=== PATIENT | male | born 1950 | race African-American/Black ===

== ENCOUNTER 2024-04-05 11:10 | Inpatient (IN) | payer OTHER ==
[~2024-04-05] VITALS: Ht 188 cm; Wt 90.3 kg
[2024-04-05 11:13] VITALS: O2SAT 97
[2024-04-05] MEDS ORDERED: VANCOMYCIN 1G PREMIX 200 ML IV ONE (11:30)
[2024-04-05] MEDS: SODIUM CHLORIDE 0.9% (SEPSIS BOLUS) IV ONE (11:58)
[2024-04-05] MEDS: PIPERACILLIN/TAZO 3.375G/50ML 50 ML IV ONE (12:07)
[2024-04-05 12:11] LABS: BASOPHILS % 0.4 % (0.0-2.0); DIFFERENTIAL COMMENT 0; EOSINOPHILS % 1.1 % (0.0-5.0); HEMATOCRIT. 39.2 % (42.0-52.0); HEMOGLOBIN. 12.6 g/dL (14.0-18.0); LYMPHOCYTES % 28.2 % (20.0-50.0); MEAN CORPUSCULAR HEMOGLOBIN 23.7 pg (28.0-32.0); MEAN CORPUSCULAR HGB CONC 32.2 g/dL (31.0-37.0); MEAN CORPUSCULAR VOLUME 73.5 fL (80.0-94.0); MEAN PLATELET VOLUME 8.9 fl (7.4-10.4); MONOCYTES % 9.8 % (2.0-8.0); NEUTROPHILS % 60.5 % (40.0-76.0); PLATELET 238 x1000/uL (130-400); RED BLOOD CELL COUNT 5.34 mill/uL (4.7-6.1); RED CELL DISTRIBUTION WIDTH 17.2 % (11.6-14.6); WHITE BLOOD COUNT 6.7 x1000/uL (4.5-11.0)
[2024-04-05 12:16] LABS: CHLORIDE 108 mEq/L (98-107); POTASSIUM 3.7 mEq/L (3.5-5.1); SODIUM 140 mEq/L (136-145)
[2024-04-05 12:17] LABS: CALCIUM 8.5 mg/dL (8.7-10.4); CARBON DIOXIDE 25 mEq/L (21-32)
[2024-04-05 12:20] LABS: PROTHROMBIN TIME 11.4 sec (9.6-11.0)
[2024-04-05 12:22] LABS: GLUCOSE 142 mg/dL (70-105); UREA NITROGEN BLOOD 8 mg/dL (9-23)
[2024-04-05 12:23] LABS: LACTIC ACID 2.1 mmol/L (0.4-2.0); TROPONIN I HIGH SENSITIVITY 5 ng/L (3.0-53)
[2024-04-05 12:24] LABS: ALANINE AMINOTRANSFERASE < 7 IU/L (10-49); ALBUMIN 3.7 g/dL (3.2-4.8); ASPARTATE AMINOTRANSFERASE 11 IU/L (<34); BILIRUBIN DIRECT 0.1 mg/dL (<=3.0); BILIRUBIN TOTAL 0.4 mg/dL (0.1-1.0)
[2024-04-05] MEDS: VANCOMYCIN 1GM PMX (XELLIA) 200 ML IV NR ×2 (13:07→14:45)
[2024-04-05] MEDS ORDERED: MAGNESIUM/ALUMINUM HYDROXIDE/SIMETHICONE 30ML UDC PO PRN (14:15)
[2024-04-05] MEDS: LACTATED RINGERS 1,000 ML IV SCH (14:15)
[2024-04-05] MEDS ORDERED: KETOROLAC 15MG/ML VIAL IV PRN (14:15)
[2024-04-05] MEDS ORDERED: NITROGLYCERIN 0.4MG TABLET SL SL PRN (14:15)
[2024-04-05] MEDS ORDERED: ACETAMINOPHEN 325MG TABLET PO PRN ×2 (14:15)
[2024-04-05] MEDS ORDERED: ZOLPIDEM TARTRATE 5MG TABLET PO PRN (14:15)
[2024-04-05] MEDS ORDERED: DOCUSATE SODIUM 100MG CAPSULE PO PRN (14:15)
[2024-04-05] MEDS ORDERED: MEROPENEM 1,000 MG in SODIUM CHLORIDE 0.9% 100 ML IV SCH (14:15)
[2024-04-05] MEDS ORDERED: ONDANSETRON HCL 4MG/2ML INJ IV PRN (14:15)
[2024-04-05] MEDS ORDERED: GUAIFENESIN 200MG/10ML SUGAR FREE UDC PO PRN (14:15)
[2024-04-05] MEDS ORDERED: CLONIDINE 0.1MG TABLET PO PRN (14:15)
[2024-04-05] MEDS ORDERED: IPRATROPIUM/ALBUTEROL 0.5-3(2.5)MG/3ML NEB NEB PRN (14:15)
[2024-04-05] MEDS: ENOXAPARIN 40MG/0.4ML SYR SUBCUT SCH (15:00)
[2024-04-05] MEDS: MEROPENEM 1G/100ML IV SCH (15:00)
[2024-04-05 15:23] LABS: IRON 47 ug/dL (65-175)
[2024-04-05 15:24] LABS: TRIGLYCERIDE 81 mg/dL (0-150)
[2024-04-05 15:25] LABS: LDL CHOLESTEROL 84 mg/dL (5-100)
[2024-04-05 15:26] LABS: CHOLESTEROL 145 mg/dL (<200); HDL CHOLESTEROL 46 mg/dL (>55); TOTAL IRON BINDING CAPACITY 231 ug/dl (250-425)
[2024-04-05 15:29] LABS: FOLIC ACID (FOLATE) SERUM 12.37 ng/mL (>5.38); T4 FREE 0.98 ng/dL (0.89-1.76); THYROID STIMULATING HORMONE 3.87 uIU/mL (0.55-4.78)
[2024-04-05 15:30] LABS: VITAMIN B12 SERUM 376 pg/mL (211-911)
[2024-04-05 20:00] VITALS: BP 123/81; PULSE 101; RESP 17; TEMP 36.44736; O2SAT 100
[2024-04-05] MEDS: FAMOTIDINE 20MG TABLET PO SCH (21:28)
[2024-04-05] MEDS: ASCORBIC ACID 500 MG TABLET PO SCH (21:29)
[2024-04-05] MEDS: DILTIAZEM HCL 60MG TABLET PO SCH (21:31)
[2024-04-05] MEDS: ENOXAPARIN 60MG/0.6ML SYR SUBCUT NR (21:36)
[2024-04-06] VITALS (7 sets, daily range): BP systolic 101–129; BP diastolic 65–94; PULSE 74–101; RESP 18–19; TEMP 36.44736–36.9474; O2SAT 97–100
[2024-04-06 00:54] LABS: CREATINE KINASE MB FRACTION 0.6 ng/mL (0.5-3.6)
[2024-04-06] MEDS: VANCOMYCIN 1GM PMX (XELLIA) 200 ML IV SCH (04:00)
[2024-04-06 07:17] LABS: CHLORIDE 109 mEq/L (98-107); POTASSIUM 3.9 mEq/L (3.5-5.1); SODIUM 141 mEq/L (136-145)
[2024-04-06 07:19] LABS: CREATINE KINASE MB FRACTION < 0.5 ng/mL (0.5-3.6); TROPONIN I HIGH SENSITIVITY 9 ng/L (3.0-53)
[2024-04-06 07:21] LABS: CARBON DIOXIDE 25 mEq/L (21-32)
[2024-04-06 07:22] LABS: CALCIUM 8.9 mg/dL (8.7-10.4)
[2024-04-06 07:26] LABS: CREATININE 0.9 mg/dL (0.6-1.3); GLUCOSE 87 mg/dL (70-105)
[2024-04-06 07:27] LABS: UREA NITROGEN BLOOD 8 mg/dL (9-23)
[2024-04-06 07:28] LABS: ALANINE AMINOTRANSFERASE < 7 IU/L (10-49); ALBUMIN 3.6 g/dL (3.2-4.8); ASPARTATE AMINOTRANSFERASE 11 IU/L (<34); CREATINE KINASE 67 IU/L (46-171)
[2024-04-06 07:29] LABS: BILIRUBIN TOTAL 0.7 mg/dL (0.1-1.0); PROTEIN TOTAL 6.9 g/dL (6.0-8.3)
[2024-04-06 07:46] LABS: BASOPHILS % 0.7 % (0.0-2.0); DIFFERENTIAL COMMENT 0; EOSINOPHILS % 0.5 % (0.0-5.0); HEMATOCRIT. 35.4 % (42.0-52.0); HEMOGLOBIN. 11.5 g/dL (14.0-18.0); LYMPHOCYTES % 25.3 % (20.0-50.0); MEAN CORPUSCULAR HEMOGLOBIN 23.8 pg (28.0-32.0); MEAN CORPUSCULAR HGB CONC 32.5 g/dL (31.0-37.0); MEAN CORPUSCULAR VOLUME 73.1 fL (80.0-94.0); MEAN PLATELET VOLUME 9.3 fl (7.4-10.4); MONOCYTES % 12.7 % (2.0-8.0); NEUTROPHILS % 60.8 % (40.0-76.0); PLATELET 225 x1000/uL (130-400); RED BLOOD CELL COUNT 4.84 mill/uL (4.7-6.1); RED CELL DISTRIBUTION WIDTH 16.9 % (11.6-14.6); WHITE BLOOD COUNT 8.1 x1000/uL (4.5-11.0)
[2024-04-06] MEDS: ASPIRIN 81MG EC TABLET PO SCH (09:05)
[2024-04-06] MEDS: ENOXAPARIN 100MG/ML SYR SUBCUT SCH (09:05)
[2024-04-06] MEDS: ZINC SULFATE 220 MG ( 50 ) CAPSULE PO SCH (09:06)
[2024-04-06] MEDS: METOPROLOL TARTRATE 25MG TABLET PO SCH (14:45)
[2024-04-06] MEDS: DIGOXIN 500MCG/2ML AMP IV NR (15:24)
[2024-04-07] VITALS: BP 107/70; PULSE 90; RESP 20; TEMP 36.44736; O2SAT 99
[2024-04-07 04:00] VITALS: BP 124/60; PULSE 68; RESP 19; TEMP 36.72516; O2SAT 99
[2024-04-07 08:00] VITALS: BP 150/110; PULSE 78; RESP 18; TEMP 36.28068; O2SAT 100
[2024-04-07 12:00] VITALS: BP 135/86; PULSE 76; RESP 18; O2SAT 100
[2024-04-07 16:00] VITALS: BP 130/73; PULSE 81; RESP 18; TEMP 36.55848; O2SAT 100
[2024-04-07 20:00] VITALS: BP 141/92; PULSE 87; RESP 20; TEMP 36.50292; O2SAT 96
[2024-04-08] VITALS: BP 138/90; PULSE 83; RESP 19; TEMP 36.3918; O2SAT 97
[2024-04-08 04:00] VITALS: BP 108/73; PULSE 90; RESP 20; TEMP 36.50292; O2SAT 97
[2024-04-08 08:00] VITALS: BP 124/57; PULSE 83; RESP 18; TEMP 36.89184; O2SAT 97
[2024-04-08 09:20] VITALS: PULSE 83
[2024-04-08] MEDS ORDERED: VANCOMYCIN 1.25GM PMX (XELLIA) 250 ML IV SCH (16:00)
== END 2024-04-08 14:31 | disposition left against medical advice (07) | DRG 871 ==
LOC: ER 11:10 → 5WST 13:21 → EDBEDREQTM 13:38 → EDBEDREQ 13:38 → 7WST 19:52
PROVIDERS: ADMIT Internal Medicine; ATTEND Internal Medicine
DX: A41.9 Sepsis, unspecified organism (principal); R65.21 Severe sepsis with septic shock; E87.20 Acidosis, unspecified; I48.91 Unspecified atrial fibrillation; D63.8 Anemia in other chronic diseases classified elsewhere; E83.51 Hypocalcemia
CPT/HCPCS: 36415; 71045; 80048; 80053; 80061; 80076; 80202; 82550; 82553; 82607; 82746; 83036; 83540; 83550; 83605; 83735; 84100; 84145; 84439; 84443; 84484; 85025; 93005; 93306; 93970; 97165; 99291; J1160; J1650; J2185; J2543; J3370; J7030

== ENCOUNTER 2025-01-15 19:12 | Emergency (ER) | payer MEDICARE, OTHER ==
[~2025-01-15] VITALS: Ht 185.4 cm; Wt 68.0 kg
[~2025-01-15 19:12] MED LIST: APIX5TAB PO; FERR325T6 MT; SULF1TAB48 PO; THIA100T72 PO; TOPUD PO
[2025-01-15 19:13] VITALS: BP 128/80; PULSE 77; RESP 14; TEMP 36.8; O2SAT 96
== END 2025-01-15 19:40 | disposition home or self-care (01) ==
LOC: ER 19:12
DX: M25.551 Pain in right hip (principal); R53.1 Weakness; Z79.899 Other long term (current) drug therapy; W19.XXXA Unspecified fall, initial encounter; Y93.89 Activity, other specified; Y92.89 Other specified places as the place of occurrence of the external cause; Y99.8 Other external cause status
CPT/HCPCS: 99283

== ENCOUNTER 2025-01-19 10:08 | Inpatient (IN) | payer OTHER ==
[~2025-01-19] VITALS: Ht 172.7 cm; Wt 73.0 kg
[2025-01-19 10:58] LABS: HEMATOCRIT. 29.0 % (42.0-52.0); HEMOGLOBIN. 9.4 g/dL (14.0-18.0); MEAN PLATELET VOLUME 8.6 fl (7.4-10.4); PLATELET 277 x1000/uL (130-400); RED BLOOD CELL COUNT 4.42 mill/uL (4.7-6.1); RED CELL DISTRIBUTION WIDTH 29.7 % (11.6-14.6)
[2025-01-19 11:15] LABS: TROPONIN I HIGH SENSITIVITY 6 ng/L (3.0-53)
[2025-01-19] MEDS: DILTIAZEM HCL 5MG/ML 5ML VIAL IV ONE (11:16)
[2025-01-19] MEDS: LACTATED RINGERS 1,000 ML IV SCH (11:16)
[2025-01-19 11:17] LABS: CREATININE 0.9 mg/dL (0.6-1.3); UREA NITROGEN BLOOD 15 mg/dL (9-23)
[2025-01-19 11:19] LABS: ASPARTATE AMINOTRANSFERASE 29 IU/L (<34); BILIRUBIN DIRECT 0.2 mg/dL (<=3.0); BILIRUBIN TOTAL 0.6 mg/dL (0.1-1.0); PROTEIN TOTAL 7.3 g/dL (6.0-8.3)
[2025-01-19] MEDS: DILTIAZEM HCL 60MG TABLET PO ONE (11:20)
[2025-01-19 11:50] LABS: BAND% 3.0 % (1.0-6.0); LYMPHOCYTES % MANUAL 20.0 % (20.0-50.0); MONOCYTES % MANUAL 21.0 % (2.0-8.0); NEUTROPHILS % MANUAL 56.0 % (45.0-75.0); PLATELET ESTIMATE NORMAL
[2025-01-19 12:00] VITALS: BP 102/64; PULSE 78; RESP 18; TEMP 36.9; O2SAT 98
[2025-01-19 13:10] LABS: TROPONIN I HIGH SENSITIVITY 5 ng/L (3.0-53)
[2025-01-19 15:00] VITALS: BP 102/64; PULSE 78; RESP 18; TEMP 37.0852
[2025-01-19 16:00] VITALS: BP 106/56; PULSE 70; RESP 15; TEMP 37.2; O2SAT 90
[2025-01-19] MEDS ORDERED: CLONIDINE 0.1MG TABLET PO PRN (17:30)
[2025-01-19] MEDS ORDERED: IPRATROPIUM/ALBUTEROL 0.5-3(2.5)MG/3ML NEB HHN PRN (17:30)
[2025-01-19] MEDS ORDERED: ACETAMINOPHEN 325MG TABLET PO PRN (17:30)
[2025-01-19] MEDS ORDERED: ONDANSETRON HCL 4MG/2ML INJ IV PRN (17:30)
[2025-01-19] MEDS ORDERED: GUAIFENESIN 200MG/10ML SUGAR FREE UDC PO PRN (17:30)
[2025-01-19] MEDS ORDERED: DOCUSATE SODIUM 100MG CAPSULE PO PRN (17:30)
[2025-01-19] MEDS: IOHEXOL-350 100 ML BOTTLE ONE (17:44)
[2025-01-19] MEDS: FERROUS SULFATE 325MG TABLET PO SCH (18:17)
[2025-01-19] MEDS: THIAMINE HCL 100MG TABLET PO SCH (18:17)
[2025-01-19] MEDS: APIXABAN 5 MG TABLET PO SCH (18:20)
[2025-01-19] MEDS: MVI, ADULT NO.1 10 ML, FOLIC ACID 1 MG, THIAMINE HCL 100 MG in SODIUM CHLORIDE 0.9% 1,0... IV ONE (19:30)
[2025-01-19] MEDS: PANTOPRAZOLE SODIUM 40 MG/VIAL IV SCH (19:45)
[2025-01-19 20:00] VITALS: BP 97/55; PULSE 62; RESP 18; TEMP 36.6; O2SAT 99
[2025-01-19] MEDS: DILTIAZEM HCL 30MG TABLET PO SCH (20:58)
[2025-01-19] MEDS: SODIUM CHLORIDE 0.45% 1,000 ML IV SCH (21:50)
[2025-01-19] MEDS ORDERED: DILTIAZEM HCL 30MG TABLET PO SCH (22:00)
[2025-01-19 22:20] LABS: TRIGLYCERIDE 80 mg/dL (0-150)
[2025-01-19 22:21] LABS: LDL CHOLESTEROL 95 mg/dL (5-100)
[2025-01-19 22:22] LABS: ASPARTATE AMINOTRANSFERASE 26 IU/L (<34); BILIRUBIN DIRECT 0.2 mg/dL (<=3.0)
[2025-01-19 22:23] LABS: BILIRUBIN TOTAL 0.6 mg/dL (0.1-1.0); PHOSPHORUS 3.1 mg/dL (2.5-4.9); PROTEIN TOTAL 6.5 g/dL (6.0-8.3)
[2025-01-19 22:27] LABS: FOLIC ACID (FOLATE) SERUM 9.51 ng/mL (>5.38); VITAMIN B12 SERUM 677 pg/mL (211-911)
[2025-01-19 22:59] LABS: HEPATITIS C AB NON REACTIVE (Neg) (Negative)
[2025-01-19 23:18] LABS: TROPONIN I HIGH SENSITIVITY 5 ng/L (3.0-53)
[2025-01-20] VITALS: BP 91/53; PULSE 79; RESP 18; TEMP 36.7; O2SAT 91; O2SAT 97
[2025-01-20] MEDS: KETOROLAC 15MG/ML VIAL IV PRN (02:46)
[2025-01-20] MEDS: ACETAMINOPHEN 325MG TABLET PO PRN (02:46)
[2025-01-20 04:00] VITALS: BP 111/76; PULSE 85; RESP 18; TEMP 36.5; O2SAT 98
[2025-01-20 08:15] VITALS: BP_SYST 101; BP_SYST 104; BP_SYST 113; BP_DIAS 56; BP_DIAS 57; BP_DIAS 60; PULSE 76; TEMP 36.3; O2SAT 98
[2025-01-20] MEDS: FOLIC ACID 1MG TABLET PO SCH (08:27)
[2025-01-20 11:04] LABS: HEMATOCRIT. 28.5 % (42.0-52.0); HEMOGLOBIN. 9.0 g/dL (14.0-18.0); MEAN PLATELET VOLUME 8.6 fl (7.4-10.4); PLATELET 206 x1000/uL (130-400); RED BLOOD CELL COUNT 4.31 mill/uL (4.7-6.1); RED CELL DISTRIBUTION WIDTH 29.6 % (11.6-14.6)
[2025-01-20 11:17] LABS: TROPONIN I HIGH SENSITIVITY 4 ng/L (3.0-53)
[2025-01-20 11:53] VITALS: BP 113/82; PULSE 63; TEMP 35.9; O2SAT 98
[2025-01-20] MEDS: IOHEXOL-300 100 ML BOTTLE ONE (15:05)
[2025-01-20 15:15] LABS: EOSINOPHILS % MANUAL 1.0 % (0.0-5.0); LYMPHOCYTES % MANUAL 28.0 % (20.0-50.0); MONOCYTES % MANUAL 11.0 % (2.0-8.0); NEUTROPHILS % MANUAL 60.0 % (45.0-75.0); PLATELET ESTIMATE NORMAL
[2025-01-20 16:00] VITALS: BP 126/78; PULSE 86; RESP 18; TEMP 36.5; O2SAT 95
[2025-01-20 16:07] LABS: CLARITY URINE CLEAR (CLEAR); COLOR URINE DARK YELLOW (YELLOW); GLUCOSE URINE NEGATIVE (NEGATIVE); KETONES URINE TRACE (NEGATIVE); LEUKOCYTE ESTERASE URINE NEGATIVE (NEGATIVE); NITRITE URINE NEGATIVE (NEGATIVE); OCCULT BLOOD URINE NEGATIVE (NEGATIVE); PH URINE 5.5 (4.5-8.0); PROTEIN URINE 1+ (NEGATIVE); SPECIFIC GRAVITY URINE 1.045 (1.005-1.030); UROBILINOGEN URINE 0.2 E.U./dL (0.2-1.0)
[2025-01-20 16:15] LABS: *AMPHETAMINES SCREEN URINE NEGATIVE (NEGATIVE); *BARBITURATES SCREEN URINE NEGATIVE (NEGATIVE); *BENZODIAZEPINES SCREEN URINE NEGATIVE (NEGATIVE); *COCAINE SCREEN URINE PRESUMPTIVE POSITIVE (NEGATIVE); METHADONE URINE SCREEN NEGATIVE (NEGATIVE); OPIATES URINE SCREEN NEGATIVE (NEGATIVE); PHENCYCLIDINE URINE SCREEN NEGATIVE (NEGATIVE)
[2025-01-20 16:16] LABS: CANNABINOID URINE SCREEN NEGATIVE (NEGATIVE); ECSTASY MDMA SCREEN URINE NEGATIVE (NEGATIVE)
[2025-01-20 16:24] LABS: BACTERIA URINE NONE SEEN; CALCIUM OXALATE CRYSTALS URINE 1+ /lpf; RBC URINE 0-2 /hpf (0-2); SQUAMOUS EPITHELIAL CELL URINE 1+ /lpf (RARE/1+); WBC URINE 0-2 /hpf (0-2)
[2025-01-20 20:00] VITALS: BP 90/66; PULSE 77; RESP 17; TEMP 36.7; O2SAT 98
[2025-01-21] VITALS (13 sets, daily range): BP systolic 99–142; BP diastolic 79–100; PULSE 78–131; RESP 15–24; TEMP 36.3–37; O2SAT 92–98
[2025-01-21] MEDS: LORAZEPAM 2MG/ML UD SYRINGE IV PRN (00:05)
[2025-01-21] MEDS: DILTIAZEM HCL 5MG/ML 5ML VIAL IV SCH (03:20)
[2025-01-21] MEDS: AMIODARONE 150MG/100ML D5W 100 ML IV SCH (03:57)
[2025-01-21] MEDS: AMIODARONE 360MG/200ML 200 ML IV SCH (04:56)
[2025-01-21] MEDS: DIGOXIN 500MCG/2ML AMP IV SCH (08:16)
[2025-01-21 10:06] LABS: CREATININE 0.6 mg/dL (0.6-1.3); UREA NITROGEN BLOOD < 5 mg/dL (9-23)
[2025-01-21 10:08] LABS: PHOSPHORUS 2.4 mg/dL (2.5-4.9)
[2025-01-22] VITALS (13 sets, daily range): BP systolic 103–136; BP diastolic 65–112; PULSE 89–139; RESP 14–28; TEMP 36.3–37.1; O2SAT 93–98
[2025-01-22 06:19] LABS: CREATININE 0.6 mg/dL (0.6-1.3); UREA NITROGEN BLOOD 6 mg/dL (9-23)
[2025-01-22 06:21] LABS: PHOSPHORUS 2.1 mg/dL (2.5-4.9)
[2025-01-22 06:32] LABS: PLATELET 203 x1000/uL (130-400); RED BLOOD CELL COUNT 4.76 mill/uL (4.7-6.1); RED CELL DISTRIBUTION WIDTH 29.5 % (11.6-14.6)
[2025-01-22] MEDS: METOPROLOL TARTRATE 25MG TABLET PO SCH (09:14)
[2025-01-22] MEDS: LOSARTAN 25 MG TABLET PO SCH (09:15)
[2025-01-22] MEDS ORDERED: GADOTERATE MEGLUMINE 5 MMOL/10 ML VIAL IV ONE (13:49)
[2025-01-23] VITALS (9 sets, daily range): BP systolic 109–128; BP diastolic 66–96; PULSE 67–97; RESP 16–25; TEMP 36.3–36.7; O2SAT 96–97
[2025-01-23 10:52] LABS: HEMATOCRIT. 32.2 % (42.0-52.0); HEMOGLOBIN. 10.3 g/dL (14.0-18.0); MEAN PLATELET VOLUME 8.5 fl (7.4-10.4); PLATELET 179 x1000/uL (130-400); RED BLOOD CELL COUNT 4.91 mill/uL (4.7-6.1); RED CELL DISTRIBUTION WIDTH 29.1 % (11.6-14.6)
[2025-01-23 11:15] LABS: CREATININE 0.7 mg/dL (0.6-1.3); UREA NITROGEN BLOOD 7 mg/dL (9-23)
[2025-01-23 12:10] LABS: BAND% 2.0 % (1.0-6.0); EOSINOPHILS % MANUAL 1.0 % (0.0-5.0); LYMPHOCYTES % MANUAL 22.0 % (20.0-50.0); MONOCYTES % MANUAL 18.0 % (2.0-8.0); NEUTROPHILS % MANUAL 57.0 % (45.0-75.0); PLATELET ESTIMATE NORMAL
[2025-01-23] MEDS ORDERED: METO25TA6 MT (12:25)
[2025-01-23] MEDS ORDERED: DIGO125T80 MT (12:25)
== END 2025-01-23 17:00 | disposition home or self-care (01) | DRG 309 ==
LOC: ER 10:09 → EDBEDREQ 12:43 → EDBEDREQTM 12:43 → ENRESERV 12:56 → 5WST 13:24 → 5EST 01-21 03:52
PROVIDERS: ADMIT Internal Medicine; ATTEND Internal Medicine
DX: I48.0 Paroxysmal atrial fibrillation (principal); I82.C12 Acute embolism and thrombosis of left internal jugular vein; C76.0 Malignant neoplasm of head, face and neck; D50.9 Iron deficiency anemia, unspecified; E78.5 Hyperlipidemia, unspecified; R22.1 Localized swelling, mass and lump, neck; F19.10 Other psychoactive substance abuse, uncomplicated; F10.20 Alcohol dependence, uncomplicated; F14.10 Cocaine abuse, uncomplicated; T45.1X5A Adverse effect of antineoplastic and immunosuppressive drugs, initial encounter; E05.90 Thyrotoxicosis, unspecified without thyrotoxic crisis or storm; Z79.01 Long term (current) use of anticoagulants; Z86.73 Personal history of transient ischemic attack (TIA), and cerebral infarction without residual deficits; Z87.891 Personal history of nicotine dependence; Z85.89 Personal history of malignant neoplasm of other organs and systems; Z85.819 Personal history of malignant neoplasm of unspecified site of lip, oral cavity, and pharynx; Z85.828 Personal history of other malignant neoplasm of skin; Z92.21 Personal history of antineoplastic chemotherapy; Y92.89 Other specified places as the place of occurrence of the external cause
CPT/HCPCS: 36415; 70491; 71045; 71275; 72156; 80048; 80061; 80076; 80305; 81003; 82607; 82728; 82746; 82962; 83540; 83550; 83605; 83735; 83880; 84100; 84145; 84439; 84443; 84484; 85025; 85027; 86705; 86850; 86900; 87340; 93005; 93306; 93970; 94760; 99291; A4606; A9577; J0282; J1160; J1885; J2060; J2470; J3411; J3490; J7030; Q9967